=== PATIENT | male | born 1965 | race American Indian/Alaskan Native ===

== ENCOUNTER 2019-06-21 18:13 | Inpatient (IN) | payer OTHER ==
[2019-06-21 18:56] LABS: Basophils # (Auto) 0.1 K/mm3 (0.0-0.1); Basophils % (Auto) 0.7 % (0.0-1.8); Eosinophils # (Auto) 0.1 K/mm3 (0.0-0.4); Eosinophils % (Auto) 0.9 % (0.0-4.3); Hematocrit 50.9 % (35.5-45.6); Hemoglobin 16.9 gm/dl (11.8-15.2); Lymphocytes # (Auto) 2.4 K/mm3 (1.2-5.4); Lymphocytes % (Auto) 30.8 % (13.4-35.0); Mean Corpuscular HGB Conc 33 % (32-34); Mean Corpuscular Volume 90 fl (84-94); Monocytes # (Auto) 0.6 K/mm3 (0.0-0.8); Monocytes % (Auto) 7.6 % (0.0-7.3); Platelet Count 247 K/mm3 (140-440); Red Blood Count 5.68 M/mm3 (3.65-5.03)
[2019-06-21 19:15] LABS: Calcium 10.9 mg/dL (8.4-10.2)
[2019-06-21] MEDS ORDERED: SODIUM CHLORIDE 0.9% 1000 ML 1,000 ML IV ONE (20:33)
[2019-06-21] MEDS ORDERED: ONDANSETRON 4 MG/2 ML INJ IV ONE (20:37)
--- NOTE | 2019-06-21 20:37 | Emergency Department Report ---
HPI - General Chief Complaint: Nausea/Vomiting/Diarrhea Time Seen by Provider: 06/21/19 20:13 - HPI HPI: 53-year-old male presents to the emergency department with a complaint of a 4-5 day history of some nausea, vomiting, abdominal cramping, facial numbness and also complains of some generalized fatigue and weakness for even longer than that. The patient has a past medical history of [id number] diabetes and high cholesterol. He takes metformin and "some other pill that goes with that" and says that he has been taking it compliantly. His primary care physician is a Dr. Pandey and he has not seen them for a couple of months. Patient says that he is supposed to check his blood sugar at home but has not been doing so. ED Past Medical Hx - Past Medical History Previous Medical History?: Yes Hx Diabetes: Yes Additional medical history: high cholesterol - Surgical History Past Surgical History?: No - Social History Smoking Status: Current Every Day Smoker Substance Use Type: None ED Review of Systems ROS: Stated complaint: FLU SYMPTOMS Other details as noted in HPI Comment: All other systems reviewed and negative Constitutional: weakness. denies: chills, fever Eyes: denies: eye pain, vision change ENT: denies: ear pain, throat pain Respiratory: denies: cough, shortness of breath Cardiovascular: denies: chest pain, palpitations Endocrine: increased thirst, increased urine Gastrointestinal: abdominal pain, nausea, vomiting Genitourinary: frequency. denies: dysuria Musculoskeletal: denies: back pain, arthralgia Skin: denies: rash, lesions Neurological: denies: headache, weakness Physical Exam - Physical Exam Vital Signs: Vital Signs 06/21/19 18:23 Temperature 99.1 F Pulse Rate 109 H Respiratory 18 Rate Blood Pressure 140/87 O2 Sat by Pulse 95 Oximetry Physical Exam: GENERAL: The patient is well-developed well-nourished. HEENT: Normocephalic. Atraumatic. Patient has moist mucous membranes. EYES: Extraocular motions are intact. NECK: Supple. Trachea is midline CHEST/LUNGS: Clear to auscultation. There is no respiratory distress noted. HEART/CARDIOVASCULAR: Regular. There is mild tachycardia. ABDOMEN: Abdomen is soft, nontender. Patient has normal bowel sounds. There is no abdominal distention. SKIN: Skin is warm and dry. NEURO: The patient is awake, alert, and oriented. The patient is cooperative. The patient has no focal neurologic deficits. Normal speech. MUSCULOSKELETAL: There is no tenderness or deformity. There is no limitation range of motion. There is no evidence of acute injury. ED Course Vital Signs 06/21/19 18:23 Temperature 99.1 F Pulse Rate 109 H Respiratory 18 Rate Blood Pressure 140/87 O2 Sat by Pulse 95 Oximetry ED Medical Decision Making - Lab Data Result diagrams: 06/21/19 18:46 06/21/19 20:53 - Medical Decision Making This patient presents to the emergency department with some nausea and vomiting, generalized weakness and fatigue, abdominal pain/cramping, increased thirst and increased urination. He has a history of non-insulin dependent diabetes and has been compliant with his medication. He was found to have a blood sugar of 920. There is no venous acidosis. There is a mild elevation in his anion gap. The patient has been started on an insulin drip and receiving IV fluid resuscitation. He will be admitted to the ICU and has been excessive for admission by the hospitalist, Dr. Durant. - Differential Diagnosis DKA, HHNK, food poisoning, colitis Critical Care Time: No Critical care attestation.: If time is entered above; I have spent that time in minutes in the direct care of this critically ill patient, excluding procedure time. ED Disposition Clinical Impression: Diabetic hyperosmolar non-ketotic state, Hyperglycemia Disposition: OP ADMIT IP TO THIS HOSP Is pt being admited?: Yes Condition: Serious Time of Disposition: 21:28
[2019-06-21] MEDS ORDERED: INSULIN REGULAR, HUMAN 100 UNITS in SODIUM CHLORIDE 0.9% 99 ML IV SCH (21:00)
[2019-06-21 21:08] LABS: Bilirubin,Urine NEG (Negative); Blood,Urine NEG (Negative); Color,Urine Colorless (Yellow); Mucus,Urine FEW /HPF; Protein,Urine <15 mg/dL mg/dL (Negative); Urobilinogen,Urine < 2.0 mg/dL (<2.0)
[2019-06-21 21:55] LABS: BUN/Creatinine Ratio 14; Blood Urea Nitrogen 20 mg/dL (9-20); Calcium 10.8 mg/dL (8.4-10.2); Hemolysis Index 5
[2019-06-21] MEDS ORDERED: SODIUM CHLORIDE 0.9% 1000 ML 1,000 ML ONE ×2 (22:43→23:57)
--- NOTE | 2019-06-21 23:20 | History and Physical Report ---
History of Present Illness Date of examination: 06/21/19 Date of admission: 06/21/19 21:28 Chief complaint: Nausea and vomiting Abdominal pain History of present illness: 53-year-old male with known history of diabetes mellitus and hyperlipidemia presenting to the emergency room today complaining of nausea and vomiting for about 2 days and also associated abdominal pain. He has also been having generalized fatigue. He denies any fever, no chills, no chest pain or shortness of breath. Patient admits that he has not been quite compliant with his medication and has missed a few doses of his blood sugar medication lately. Upon arrival in the emergency room work-up reveals a blood glucose in the 900s. He was subsequently started on insulin drip and IV fluids. Past History Past Medical History: hyperlipidemia Past Surgical History: No surgical history Social history: smoking (Smokes about 1 pack/day of cigarette) Family history: diabetes, hypertension Medications and Allergies Allergies Allergy/AdvReac Type Severity Reaction Status Date / Time Penicillins Allergy Unknown Verified 06/21/19 18:22 Active Meds: Active Medications Insulin Human Regular 100 (units/ Sodium Chloride) 100 mls @ 6 mls/hr IV TITR [facility]; Protocol Last Admin: 06/21/19 22:24 Dose: 8 units/hr, 8 mls/hr Documented by: Sodium Chloride (Sodium Chloride Flush Syringe 10 Ml) 10 ml IV BID [facility] Sodium Chloride (Sodium Chloride Flush Syringe 10 Ml) 10 ml IV PRN PRN PRN Reason: LINE FLUSH Review of Systems Gastrointestinal: abdominal pain, nausea, vomiting Exam - Constitutional Vitals: Temp Pulse Resp BP Pulse Ox 98.4 F 85 18 120/69 95 06/21/19 21:43 06/21/19 21:43 06/21/19 21:43 06/21/19 21:43 06/21/19 21:43 General appearance: Present: no acute distress, well-nourished - EENT Eyes: Present: PERRL, EOM intact ENT: hearing intact, clear oral mucosa, dentition normal - Neck Neck: Present: supple, normal ROM - Respiratory Respiratory effort: normal Respiratory: bilateral: CTA - Cardiovascular Rhythm: regular Heart Sounds: Present: S1 & S2 - Extremities Extremities: no ischemia, pulses intact, pulses symmetrical, No edema, Full ROM Peripheral Pulses: within normal limits - Abdominal General gastrointestinal: Present: soft, non-tender, non-distended - Integumentary Integumentary: Present: clear, warm, dry - Musculoskeletal Musculoskeletal: strength equal bilaterally - Psychiatric Psychiatric: appropriate mood/affect, intact judgment & insight, cooperative - Neurologic Neurologic: CNII-XII intact Results - Labs CBC & Chem 7: 06/21/19 18:46 06/22/19 01:14 Labs: Abnormal lab results 06/21/19 06/21/19 06/21/19 Range/Units 18:31 18:46 18:46 RBC 5.68 H (3.65-5.03) M/mm3 Hgb 16.9 H (11.8-15.2) gm/dl Hct 50.9 H (35.5-45.6) % RDW 13.0 L (13.2-15.2) % [place] % (Auto) 7.6 H (0.0-7.3) % VBG pH (7.320-7.420) Sodium 124 L (137-145) mmol/L Potassium 5.2 H (3.6-5.0) mmol/L Chloride 84.0 L (98-107) mmol/L Glucose 920 H* (75-100) mg/dL POC Glucose > 500 H (70-105) Calcium 10.9 H (8.4-10.2) mg/dL Magnesium (1.7-2.3) mg/dL 06/21/19 06/21/19 06/21/19 Range/Units 18:46 20:53 20:53 RBC (3.65-5.03) M/mm3 Hgb (11.8-15.2) gm/dl Hct (35.5-45.6) % RDW (13.2-15.2) % [place] % (Auto) (0.0-7.3) % VBG pH 7.422 H (7.320-7.420) Sodium 128 L (137-145) mmol/L Potassium 5.2 H (3.6-5.0) mmol/L Chloride 87.4 L (98-107) mmol/L Glucose 755 H* (75-100) mg/dL POC Glucose (70-105) Calcium 10.8 H (8.4-10.2) mg/dL Magnesium 2.60 H (1.7-2.3) mg/dL Assessment and Plan - Patient Problems (1) Diabetic hyperosmolar non-ketotic state Current Visit: Yes Status: Acute Plan to address problem: Patient admitted into the intensive care unit started on IV fluid and insulin drip. We will monitor Accu-Cheks closely. (2) Hyperlipidemia Current Visit: Yes Status: Acute Plan to address problem: We will continue on routine home medications and monitor lipid profile. (3) DVT prophylaxis Current Visit: Yes Status: Acute Plan to address problem: Patient placed on subcutaneous heparin. (4) Full code status Current Visit: Yes Status: Acute
[2019-06-22] MEDS: SODIUM CHLORIDE 0.9% 1000 ML 1,000 ML IV SCH ×2 (00:06→16:00)
[2019-06-22 02:01] LABS: BUN/Creatinine Ratio 15; Blood Urea Nitrogen 16 mg/dL (9-20); Calcium 10.2 mg/dL (8.4-10.2); Hemolysis Index 2
[2019-06-22] MEDS ORDERED: D5W/0.45% NACL 1,000 ML IV ONE (05:07)
[2019-06-22 05:11] LABS: BUN/Creatinine Ratio 14; Blood Urea Nitrogen 14 mg/dL (9-20); Calcium 10.2 mg/dL (8.4-10.2); Hemolysis Index 4
[2019-06-22] MEDS: HEPARIN 5,000 UNIT/1 ML VIAL SUB-Q SCH ×4 (06:50→22:00)
[2019-06-22] MEDS ORDERED: HEPARIN 5,000 UNIT/1 ML VIAL ONE (06:51)
[2019-06-22] MEDS ORDERED: INSULIN NPH, HUMAN 100 UNIT/1 ML SUB-Q SCH (12:00)
[2019-06-22] MEDS: INSULIN REGULAR, HUMAN 100 UNITS/1 ML SUB-Q SCH ×3 (12:36→21:58)
--- NOTE | 2019-06-22 14:01 | Progress Note ---
Assessment and Plan /Diabetic hyperosmolar non-ketotic state Patient admitted into the intensive care unit started on IV fluid and insulin drip. We will monitor Accu-Cheks closely. stop insulin drip, as BG improved, start on NPH BID and SSI cont to adjust insulin dose for better glycemic control, consistent carb diet /hyponatremia, due to hyperglycemia, improved with IV fluid / Hyperlipidemia We will continue on routine home medications and monitor lipid profile. / DVT prophylaxis Patient placed on subcutaneous heparin. / Full code status Subjective Date of service: 06/22/19 Interval history: patient sen and examined BG improved, denies any chest pain Objective - Constitutional Vitals: Vital Signs - 12hr 06/22/19 06/22/19 06/22/19 02:15 02:30 02:45 Pulse Rate Respiratory 23 17 Rate Blood Pressure 133/51 133/61 133/61 Blood Pressure [Left] O2 Sat by Pulse 93 94 Oximetry 06/22/19 06/22/19 06/22/19 03:00 03:15 03:30 Pulse Rate Respiratory 19 20 19 Rate Blood Pressure 121/52 121/52 116/62 Blood Pressure [Left] O2 Sat by Pulse 91 94 89 Oximetry 06/22/19 06/22/19 06/22/19 03:45 04:00 04:15 Pulse Rate Respiratory 20 Rate Blood Pressure 118/69 120/71 120/63 Blood Pressure [Left] O2 Sat by Pulse 91 91 87 Oximetry 06/22/19 06/22/19 06/22/19 04:30 04:45 05:00 Pulse Rate Respiratory Rate Blood Pressure 108/69 115/64 119/73 Blood Pressure [Left] O2 Sat by Pulse 87 89 88 Oximetry 06/22/19 06/22/19 06/22/19 05:15 05:30 05:45 Pulse Rate Respiratory Rate Blood Pressure 108/66 125/76 125/76 Blood Pressure [Left] O2 Sat by Pulse 90 92 95 Oximetry 06/22/19 06/22/19 06/22/19 06:00 06:15 06:30 Pulse Rate Respiratory Rate Blood Pressure 123/74 123/74 111/72 Blood Pressure [Left] O2 Sat by Pulse 92 94 90 Oximetry 06/22/19 06/22/19 06/22/19 06:45 07:00 07:15 Pulse Rate Respiratory Rate Blood Pressure 111/72 110/62 106/62 Blood Pressure [Left] O2 Sat by Pulse 93 93 88 Oximetry 06/22/19 06/22/19 06/22/19 07:27 07:30 07:45 Pulse Rate 71 65 64 Respiratory 24 13 12 Rate Blood Pressure 109/64 114/69 Blood Pressure 106/62 [Left] O2 Sat by Pulse 97 93 94 Oximetry 06/22/19 06/22/19 06/22/19 08:00 08:15 08:30 Pulse Rate 68 67 64 Respiratory 17 17 16 Rate Blood Pressure 109/64 111/64 114/66 Blood Pressure [Left] O2 Sat by Pulse 89 91 92 Oximetry 06/22/19 06/22/19 06/22/19 08:45 09:00 09:15 Pulse Rate 59 L 69 76 Respiratory 16 18 16 Rate Blood Pressure 114/66 108/70 108/70 Blood Pressure [Left] O2 Sat by Pulse 98 92 94 Oximetry 06/22/19 06/22/19 06/22/19 09:30 09:45 10:00 Pulse Rate 64 78 63 Respiratory 18 17 16 Rate Blood Pressure 109/65 109/65 111/74 Blood Pressure [Left] O2 Sat by Pulse 92 95 94 Oximetry 06/22/19 06/22/19 06/22/19 10:15 10:30 10:45 Pulse Rate 61 59 L 64 Respiratory 32 H 17 15 Rate Blood Pressure 119/72 120/78 120/78 Blood Pressure [Left] O2 Sat by Pulse 95 98 95 Oximetry 06/22/19 06/22/19 06/22/19 11:00 11:15 11:30 Pulse Rate 64 65 65 Respiratory 14 15 18 Rate Blood Pressure 112/73 112/73 102/67 Blood Pressure [Left] O2 Sat by Pulse 93 95 94 Oximetry 06/22/19 06/22/19 06/22/19 11:45 12:00 12:15 Pulse Rate 77 63 70 Respiratory 14 19 20 Rate Blood Pressure 102/67 112/71 119/73 Blood Pressure [Left] O2 Sat by Pulse 95 96 95 Oximetry 06/22/19 06/22/19 06/22/19 12:30 12:45 13:01 Pulse Rate 71 77 78 Respiratory 18 21 19 Rate Blood Pressure 123/79 123/79 119/73 Blood Pressure [Left] O2 Sat by Pulse 94 Oximetry 06/22/19 13:15 Pulse Rate 81 Respiratory 13 Rate Blood Pressure 119/73 Blood Pressure [Left] O2 Sat by Pulse Oximetry General appearance: Present: no acute distress, well-nourished - EENT Eyes: PERRL, EOM intact ENT: hearing intact, clear oral mucosa Ears: bilateral: normal - Neck Neck: supple, normal ROM - Respiratory Respiratory effort: normal Respiratory: bilateral: CTA - Cardiovascular Rhythm: regular Heart Sounds: Present: S1 & S2. Absent: gallop, rub Extremities: pulses intact, No edema, normal color, Full ROM - Gastrointestinal General gastrointestinal: Present: soft, non-tender, non-distended, normal bowel sounds - Integumentary Integumentary: clear, warm, dry - Musculoskeletal Musculoskeletal: 1, strength equal bilaterally - Neurologic Neurologic: moves all extremities - Psychiatric Psychiatric: memory intact, appropriate mood/affect, intact judgment & insight - Labs CBC & Chem 7: 06/21/19 18:46 06/23/19 14:40 Labs: Abnormal lab results 06/21/19 06/21/19 06/21/19 Range/Units 18:31 18:46 18:46 RBC 5.68 H (3.65-5.03) M/mm3 Hgb 16.9 H (11.8-15.2) gm/dl Hct 50.9 H (35.5-45.6) % RDW 13.0 L (13.2-15.2) % [place] % (Auto) 7.6 H (0.0-7.3) % VBG pH (7.320-7.420) Sodium 124 L (137-145) mmol/L Potassium 5.2 H (3.6-5.0) mmol/L Chloride 84.0 L (98-107) mmol/L Glucose 920 H* (75-100) mg/dL POC Glucose > 500 H (70-105) Hemoglobin A1c (4-6) % Calcium 10.9 H (8.4-10.2) mg/dL Magnesium (1.7-2.3) mg/dL 06/21/19 06/21/19 06/21/19 Range/Units 18:46 20:53 20:53 RBC (3.65-5.03) M/mm3 Hgb (11.8-15.2) gm/dl Hct (35.5-45.6) % RDW (13.2-15.2) % [place] % (Auto) (0.0-7.3) % VBG pH 7.422 H (7.320-7.420) Sodium 128 L (137-145) mmol/L Potassium 5.2 H (3.6-5.0) mmol/L Chloride 87.4 L (98-107) mmol/L Glucose 755 H* (75-100) mg/dL POC Glucose (70-105) Hemoglobin A1c (4-6) % Calcium 10.8 H (8.4-10.2) mg/dL Magnesium 2.60 H (1.7-2.3) mg/dL 06/21/19 06/22/19 06/22/19 Range/Units 20:53 00:00 01:14 RBC (3.65-5.03) M/mm3 Hgb (11.8-15.2) gm/dl Hct (35.5-45.6) % RDW (13.2-15.2) % [place] % (Auto) (0.0-7.3) % VBG pH (7.320-7.420) Sodium 136 L D (137-145) mmol/L Potassium (3.6-5.0) mmol/L Chloride (98-107) mmol/L Glucose 356 H (75-100) mg/dL POC Glucose 372 H (70-105) Hemoglobin A1c (4-6) % Calcium (8.4-10.2) mg/dL Magnesium 2.70 H (1.7-2.3) mg/dL 06/22/19 06/22/19 06/22/19 Range/Units 01:57 03:20 04:17 RBC (3.65-5.03) M/mm3 Hgb (11.8-15.2) gm/dl Hct (35.5-45.6) % RDW (13.2-15.2) % [place] % (Auto) (0.0-7.3) % VBG pH (7.320-7.420) Sodium (137-145) mmol/L Potassium (3.6-5.0) mmol/L Chloride (98-107) mmol/L Glucose (75-100) mg/dL POC Glucose 240 H 263 H (70-105) Hemoglobin A1c 11.1 H (4-6) % Calcium (8.4-10.2) mg/dL Magnesium (1.7-2.3) mg/dL 06/22/19 06/22/19 06/22/19 Range/Units 04:17 05:10 06:49 RBC (3.65-5.03) M/mm3 Hgb (11.8-15.2) gm/dl Hct (35.5-45.6) % RDW (13.2-15.2) % [place] % (Auto) (0.0-7.3) % VBG pH (7.320-7.420) Sodium (137-145) mmol/L Potassium (3.6-5.0) mmol/L Chloride (98-107) mmol/L Glucose 253 H (75-100) mg/dL POC Glucose 196 H 219 H (70-105) Hemoglobin A1c (4-6) % Calcium (8.4-10.2) mg/dL Magnesium (1.7-2.3) mg/dL 06/22/19 06/22/19 06/22/19 Range/Units 07:54 08:54 10:04 RBC (3.65-5.03) M/mm3 Hgb (11.8-15.2) gm/dl Hct (35.5-45.6) % RDW (13.2-15.2) % [place] % (Auto) (0.0-7.3) % VBG pH (7.320-7.420) Sodium (137-145) mmol/L Potassium (3.6-5.0) mmol/L Chloride (98-107) mmol/L Glucose (75-100) mg/dL POC Glucose 258 H 253 H 205 H (70-105) Hemoglobin A1c (4-6) % Calcium (8.4-10.2) mg/dL Magnesium (1.7-2.3) mg/dL 06/22/19 Range/Units 12:02 RBC (3.65-5.03) M/mm3 Hgb (11.8-15.2) gm/dl Hct (35.5-45.6) % RDW (13.2-15.2) % [place] % (Auto) (0.0-7.3) % VBG pH (7.320-7.420) Sodium (137-145) mmol/L Potassium (3.6-5.0) mmol/L Chloride (98-107) mmol/L Glucose (75-100) mg/dL POC Glucose 149 H (70-105) Hemoglobin A1c (4-6) % Calcium (8.4-10.2) mg/dL Magnesium (1.7-2.3) mg/dL
[2019-06-22 15:27] LABS: BUN/Creatinine Ratio 14; Blood Urea Nitrogen 14 mg/dL (9-20); Calcium 9.8 mg/dL (8.4-10.2); Hemolysis Index 17
--- NOTE | 2019-06-22 16:53 | Consultation ---
History of Present Illness Consult date: 06/22/19 Reason for consult: other (History of smoking.) History of present illness: Pulmonary and Critical Care Consult Dr. Valadez, thank you for consulting us for the care of this patient. 53-year-old male with known history of diabetes mellitus and hyperlipidemia presenting to the emergency room today complaining of nausea and vomiting for about 2 days and also associated abdominal pain. He has also been having generalized fatigue. He denies any fever, no chills, no chest pain or shortness of breath. Patient admits that he has not been quite compliant with his medication and has missed a few doses of his blood sugar medication lately.Upon arrival in the emergency room work-up reveals a blood glucose in the 900s. He was subsequently started on insulin drip and IV fluids. Patient denies other medical problems. Patient has history of smoking 1 pack x 20years. Counselled to stop smoking. Denies alcohol and drug abuse.Patient works as truck operator. Denies leg swelling, calf tenderness or shortness of breath. Patients venous PH 7.42. Patients recent blood sugur 511. Patient allergic to penicillin. Not and has 5 children. Past History Past Medical History: diabetes, hyperlipidemia Past Surgical History: No surgical history Social history: smoking (Smokes about 1 pack/day of cigarette) Family history: diabetes, hypertension Medications and Allergies Allergies Allergy/AdvReac Type Severity Reaction Status Date / Time Penicillins Allergy Unknown Verified 06/21/19 18:22 Active Meds: Active Medications Heparin Sodium (Porcine) (Heparin) 5,000 unit SUB-Q Q8HR [facility] Last Admin: 06/22/19 15:52 Dose: Not Given Documented by: Sodium Chloride (Nacl 0.9% 1000 Ml) 1,000 mls @ 150 mls/hr IV DIRECT [facility] Last Admin: 06/22/19 16:00 Dose: 150 mls/hr Documented by: Insulin Human NPH (Humulin N) 20 unit SUB-Q BIDDIAB [facility] Insulin Human Regular (Humulin R) 0 units SUB-Q ACHS [facility]; Protocol Last Admin: 06/22/19 12:36 Dose: Not Given Documented by: Insulin Human Regular (Humulin R) 10 units SUB-Q ONCE ONE Stop: 06/22/19 17:01 Sodium Chloride (Sodium Chloride Flush Syringe 10 Ml) 10 ml IV BID [facility] Last Admin: 06/22/19 10:23 Dose: 10 ml Documented by: Sodium Chloride (Sodium Chloride Flush Syringe 10 Ml) 10 ml IV PRN PRN PRN Reason: LINE FLUSH Review of Systems All systems: negative Physical Examination Vital signs: Vital Signs Temp Pulse Resp BP Pulse Ox 99.1 F 109 H 18 140/87 95 06/21/19 18:23 06/21/19 18:23 06/21/19 18:23 06/21/19 18:23 06/21/19 18:23 General appearance: no acute distress, alert Eyes: non-icteric ENT: oropharynx moist Ascultation: Bilateral: clear Cardiovascular: regular rate and rhythm Gastrointestinal: normoactive bowel sounds, soft, non-tender Integumentary: normal Extremities: no cyanosis, no edema Musculoskeletal: no deformities Gait: normal gait normal mental status, non-focal exam, pupils equal and round, CN II-XII normal mood appropriate Results - Laboratory Findings CBC and BMP: 06/21/19 18:46 06/22/19 14:52 Abnormal lab findings: Abnormal Labs 06/21/19 06/21/19 06/21/19 18:31 18:46 18:46 RBC 5.68 H Hgb 16.9 H Hct 50.9 H RDW 13.0 L [place] % (Auto) 7.6 H VBG pH Sodium 124 L Potassium 5.2 H Chloride 84.0 L Glucose 920 H* POC Glucose > 500 H Hemoglobin A1c Calcium 10.9 H Magnesium 06/21/19 06/21/19 06/21/19 18:46 20:53 20:53 RBC Hgb Hct RDW [place] % (Auto) VBG pH 7.422 H Sodium 128 L Potassium 5.2 H Chloride 87.4 L Glucose 755 H* POC Glucose Hemoglobin A1c Calcium 10.8 H Magnesium 2.60 H 06/21/19 06/22/19 06/22/19 20:53 00:00 01:14 RBC Hgb Hct RDW [place] % (Auto) VBG pH Sodium 136 L D Potassium Chloride Glucose 356 H POC Glucose 372 H Hemoglobin A1c Calcium Magnesium 2.70 H 06/22/19 06/22/19 06/22/19 01:57 03:20 04:17 RBC Hgb Hct RDW [place] % (Auto) VBG pH Sodium Potassium Chloride Glucose POC Glucose 240 H 263 H Hemoglobin A1c 11.1 H Calcium Magnesium 06/22/19 06/22/19 06/22/19 04:17 05:10 06:49 RBC Hgb Hct RDW [place] % (Auto) VBG pH Sodium Potassium Chloride Glucose 253 H POC Glucose 196 H 219 H Hemoglobin A1c Calcium Magnesium 06/22/19 06/22/19 06/22/19 07:54 08:54 10:04 RBC Hgb Hct RDW [place] % (Auto) VBG pH Sodium Potassium Chloride Glucose POC Glucose 258 H 253 H 205 H Hemoglobin A1c Calcium Magnesium 06/22/19 06/22/19 12:02 14:52 RBC Hgb Hct RDW [place] % (Auto) VBG pH Sodium 133 L Potassium Chloride 96.4 L Glucose 511 H* POC Glucose 149 H Hemoglobin A1c Calcium Magnesium Assessment and Plan 53-year-old male with known history of diabetes mellitus and hyperlipidemia presenting to the emergency room today complaining of nausea and vomiting for about 2 days and also associated abdominal pain. He has also been having generalized fatigue. He denies any fever, no chills, no chest pain or shortness of breath. Patient admits that he has not been quite compliant with his medication and has missed a few doses of his blood sugar medication lately.Upon arrival in the emergency room work-up reveals a blood glucose in the 900s. He wa s subsequently started on insulin drip and IV fluids. Patient denies other medical problems. Patient has history of smoking 1 pack x 20years. Counselled to stop smoking. Denies alcohol and drug abuse.Patient works as truck operator. Denies leg swelling, calf tenderness or shortness of breath. Patients venous PH 7.42. Patients recent blood sugur 511. Patient allergic to penicillin. Not and has 5 children. - Patient Problems (1) Diabetic hyperosmolar non-ketotic state Current Visit: Yes Status: Acute Plan to address problem: Patient is on I/V fluids and S/C insulin. Management as per primary care. Continue DVT prophylaxis. (2) Hyperlipidemia Current Visit: Yes Status: Acute Plan to address problem: Management as per primary care. (3) Nicotine dependence Current Visit: Yes Status: Acute Plan to address problem: Counselled to stop smoking. Obtaining chest xray.
[2019-06-22] MEDS ORDERED: INSULIN REGULAR, HUMAN 100 UNITS/1 ML SUB-Q ONE (17:00)
[2019-06-22] MEDS: INSULIN NPH, HUMAN 100 UNIT/1 ML SUB-Q SCH (18:36)
[2019-06-22 21:04] LABS: BUN/Creatinine Ratio 13; Blood Urea Nitrogen 12 mg/dL (9-20); Calcium 7.6 mg/dL (8.4-10.2); Hemolysis Index 31
[2019-06-23] MEDS: HEPARIN 5,000 UNIT/1 ML VIAL SUB-Q SCH ×2 (05:42→13:17)
[2019-06-23] MEDS: SODIUM CHLORIDE 0.9% 1000 ML 1,000 ML IV SCH ×2 (07:36→15:27)
[2019-06-23] MEDS: INSULIN REGULAR, HUMAN 100 UNITS/1 ML SUB-Q SCH ×3 (08:23→17:11)
[2019-06-23] MEDS: INSULIN NPH, HUMAN 100 UNIT/1 ML SUB-Q SCH (08:25)
--- NOTE | 2019-06-23 10:02 | Progress Note ---
Subjective Date of service: 06/23/19 Objective Vital Signs - 12hr 06/23/19 05:06 Temperature 98.2 F Pulse Rate 71 Respiratory 24 Rate Blood Pressure 116/67 O2 Sat by Pulse 97 Oximetry Constitutional: no acute distress, alert Eyes: non-icteric ENT: oropharynx moist Ascultation: Bilateral: clear Cardiovascular: regular rate and rhythm Gastrointestinal: normoactive bowel sounds, soft, non-tender Integumentary: normal Extremities: no cyanosis, no edema Neurologic: normal mental status, non-focal exam, pupils equal and round, CN II- XII normal Psychiatric: mood appropriate CBC and BMP: 06/21/19 18:46 06/22/19 20:18 Abnormal lab findings: Abnormal Labs 06/21/19 06/21/19 06/21/19 18:31 18:46 18:46 RBC 5.68 H Hgb 16.9 H Hct 50.9 H RDW 13.0 L [place] % (Auto) 7.6 H VBG pH Sodium 124 L Potassium 5.2 H Chloride 84.0 L Carbon Dioxide Glucose 920 H* POC Glucose > 500 H Hemoglobin A1c Calcium 10.9 H Magnesium 06/21/19 06/21/19 06/21/19 18:46 20:53 20:53 RBC Hgb Hct RDW [place] % (Auto) VBG pH 7.422 H Sodium 128 L Potassium 5.2 H Chloride 87.4 L Carbon Dioxide Glucose 755 H* POC Glucose Hemoglobin A1c Calcium 10.8 H Magnesium 2.60 H 06/21/19 06/22/19 06/22/19 20:53 00:00 01:14 RBC Hgb Hct RDW [place] % (Auto) VBG pH Sodium 136 L D Potassium Chloride Carbon Dioxide Glucose 356 H POC Glucose 372 H Hemoglobin A1c Calcium Magnesium 2.70 H 06/22/19 06/22/19 06/22/19 01:57 03:20 04:17 RBC Hgb Hct RDW [place] % (Auto) VBG pH Sodium Potassium Chloride Carbon Dioxide Glucose POC Glucose 240 H 263 H Hemoglobin A1c 11.1 H Calcium Magnesium 06/22/19 06/22/19 06/22/19 04:17 05:10 06:49 RBC Hgb Hct RDW [place] % (Auto) VBG pH Sodium Potassium Chloride Carbon Dioxide Glucose 253 H POC Glucose 196 H 219 H Hemoglobin A1c Calcium Magnesium 06/22/19 06/22/19 06/22/19 07:54 08:54 10:04 RBC Hgb Hct RDW [place] % (Auto) VBG pH Sodium Potassium Chloride Carbon Dioxide Glucose POC Glucose 258 H 253 H 205 H Hemoglobin A1c Calcium Magnesium 06/22/19 06/22/19 06/22/19 12:02 14:52 17:24 RBC Hgb Hct RDW [place] % (Auto) VBG pH Sodium 133 L Potassium Chloride 96.4 L Carbon Dioxide Glucose 511 H* POC Glucose 149 H 446 H Hemoglobin A1c Calcium Magnesium 06/22/19 06/22/19 06/22/19 19:27 20:18 21:08 RBC Hgb Hct RDW [place] % (Auto) VBG pH Sodium Potassium 3.2 L D Chloride 111.4 H Carbon Dioxide 17 L Glucose 356 H POC Glucose 411 H 301 H Hemoglobin A1c Calcium 7.6 L D Magnesium 06/23/19 06/23/19 05:22 07:50 RBC Hgb Hct RDW [place] % (Auto) VBG pH Sodium Potassium Chloride Carbon Dioxide Glucose POC Glucose 263 H 302 H Hemoglobin A1c Calcium Magnesium
[2019-06-23] MEDS: metFORMIN 500 MG TAB PO SCH ×2 (10:13→17:11)
--- NOTE | 2019-06-23 12:46 | Progress Note ---
Assessment and Plan /Diabetic hyperosmolar non-ketotic state Patient admitted into the intensive care unit with IV fluid and insulin drip. We will monitor Accu-Cheks closely. stopped insulin drip, as BG improved, started on NPH BID and SSI cont to adjust insulin dose for better glycemic control - increase NPH dose today, consistent carb diet /hyponatremia, due to hyperglycemia, improved with IV fluid / Hyperlipidemia We will continue on routine home medications and monitor lipid profile. /hypokalemia, replete /hyperkalemia on admission, resolved / DVT prophylaxis Patient placed on subcutaneous heparin. / Full code status Subjective Date of service: 06/23/19 Interval history: patient sen and examined BG improved but still high 300s, denies any chest pain Objective - Constitutional Vitals: Vital Signs - 12hr 06/23/19 05:06 Temperature 98.2 F Pulse Rate 71 Respiratory 24 Rate Blood Pressure 116/67 O2 Sat by Pulse 97 Oximetry General appearance: Present: no acute distress, well-nourished - EENT Eyes: PERRL, EOM intact ENT: hearing intact, clear oral mucosa Ears: bilateral: normal - Neck Neck: supple, normal ROM - Respiratory Respiratory effort: normal Respiratory: bilateral: CTA - Cardiovascular Rhythm: regular Heart Sounds: Present: S1 & S2. Absent: gallop, rub Extremities: pulses intact, No edema, normal color, Full ROM - Gastrointestinal General gastrointestinal: Present: soft, non-tender, non-distended, normal bowel sounds - Integumentary Integumentary: clear, warm, dry - Musculoskeletal Musculoskeletal: 1, strength equal bilaterally - Neurologic Neurologic: moves all extremities - Psychiatric Psychiatric: memory intact, appropriate mood/affect, intact judgment & insight - Labs CBC & Chem 7: 06/21/19 18:46 06/23/19 14:40 Labs: Abnormal lab results 06/22/19 06/22/19 06/22/19 Range/Units 14:52 17:24 19:27 Sodium 133 L (137-145) mmol/L Potassium (3.6-5.0) mmol/L Chloride 96.4 L (98-107) mmol/L Carbon Dioxide (22-30) mmol/L Glucose 511 H* (75-100) mg/dL POC Glucose 446 H 411 H (70-105) Calcium (8.4-10.2) mg/dL 1206/22/19 06/23/19 Range/Units 20:18 21:08 05:22 Sodium (137-145) mmol/L Potassium 3.2 L D (3.6-5.0) mmol/L Chloride 111.4 H (98-107) mmol/L Carbon Dioxide 17 L (22-30) mmol/L Glucose 356 H (75-100) mg/dL POC Glucose 301 H 263 H (70-105) Calcium 7.6 L D (8.4-10.2) mg/dL 06/23/19 06/23/19 Range/Units 07:50 11:36 Sodium (137-145) mmol/L Potassium (3.6-5.0) mmol/L Chloride (98-107) mmol/L Carbon Dioxide (22-30) mmol/L Glucose (75-100) mg/dL POC Glucose 302 H 288 H (70-105) Calcium (8.4-10.2) mg/dL
[2019-06-23 15:14] LABS: BUN/Creatinine Ratio 12; Blood Urea Nitrogen 11 mg/dL (9-20); Hemolysis Index 10
[2019-06-23 15:30] LABS: Calcium 9.5 mg/dL (8.4-10.2)
[2019-06-23] MEDS ORDERED: INSULIN NPH, HUMAN 100 UNIT/1 ML SUB-Q SCH (17:00)
[2019-06-23 18:38] VITALS: BP 100/43
== END 2019-06-23 21:40 | disposition home or self-care (01) | DRG 638 ==
LOC: ED 18:13 → CC1 21:28 → 3A 06-22 12:08
PROVIDERS: ADMIT Internal Medicine Geriatric Medicine; ATTEND Internal Medicine
DX: E11.00 Type 2 diabetes mellitus with hyperosmolarity without nonketotic hyperglycemic-hyperosmolar coma (NKHHC) (principal); E87.1 Hypo-osmolality and hyponatremia; F17.210 Nicotine dependence, cigarettes, uncomplicated; E78.5 Hyperlipidemia, unspecified
CPT/HCPCS: 36415; 80048; 81001; 82805; 82962; 83036; 83735; 84100; 85025; 99406; G0378; J1642; J1644; J1815; J2405; J7030